=== PATIENT | female | born 1975 | race Caucasian/White ===

== ENCOUNTER → 2016-05-08 | Outpatient (CLI) | payer OTHER ==
[~2016-05-08] MED LIST: MIRALAX17 GM PO; NAPROXEN250 MG PO; NORCO 7.5-3251 EACH PO
[2016-05-08 11:28] LABS: RED BLOOD COUNT 4.57 M/UL (4.00-5.10)
== END ==
LOC: OPSV2 10:00
PROVIDERS: Obstetrics & Gynecology
DX: Z01.812 Encounter for preprocedural laboratory examination (principal); T19.2XXA Foreign body in vulva and vagina, initial encounter; Z88.8 Allergy status to other drugs, medicaments and biological substances
CPT/HCPCS: 36415; 81001; 85025

== ENCOUNTER 2016-05-17 07:13 | Day surgery (SDC) | payer OTHER ==
[~2016-05-17] VITALS: Ht 165.1 cm; Wt 95.3 kg
--- NOTE | 2016-05-18 01:08 | NUR ---
23:55 PT ON CENTRAL TELE / SAO2 MONITORING. PT STATES HAVING SOME CHEST PRESSURE AND STATES SHE THINKS IT IS GAS. CALLED TELE [employer]. THEY STATE PT IS IN [place] SINUS RHYTHM. RETURNED TO PT'S ROOM, TOLD PT OF THIS. PT SMILING, APPEARS RELIEVED AND STATES SHE'S GOING TO SLEEP. AT 01:00 05/18/16: PT IS SLEEPING SOUNDLY, LIGHTS OFF. NO FURTHER C/O BY PT.
[2016-05-18 03:24] LABS: HEMOGLOBIN 12.4 gm/dl (12.3-15.3)
[2016-05-18] MEDS ORDERED: NORCO 7.5-3251 EACH PO (12:53)
[2016-05-18] MEDS ORDERED: NAPROXEN250 MG PO (12:56)
[2016-05-18] MEDS ORDERED: MIRALAX17 GM PO (12:58)
== END 2016-05-18 13:19 | disposition home or self-care (01) ==
LOC: OR 07:13 → OB 07:13 → OR 11:00 → OB 14:16 → OR 05-18 13:19
PROVIDERS: Obstetrics & Gynecology
PROC: 0UBC0ZZ Excision of Cervix, Open Approach (ICD-10-PCS; principal; 2016-05-17 11:00)
DX: T83.728A Exposure of other implanted mesh into organ or tissue, initial encounter (principal); N72 Inflammatory disease of cervix uteri; N87.9 Dysplasia of cervix uteri, unspecified; F17.210 Nicotine dependence, cigarettes, uncomplicated; N73.6 Female pelvic peritoneal adhesions (postinfective); Z79.891 Long term (current) use of opiate analgesic; Z79.899 Other long term (current) drug therapy; Z88.8 Allergy status to other drugs, medicaments and biological substances; M79.7 Fibromyalgia; Z82.49 Family history of ischemic heart disease and other diseases of the circulatory system; Z80.8 Family history of malignant neoplasm of other organs or systems; Z83.3 Family history of diabetes mellitus; Z83.49 Family history of other endocrine, nutritional and metabolic diseases
CPT/HCPCS: 0; 57530; 85014; 85018; C1769; J0690; J1100; J1885; J2250; J2405; J2550; J2710; J2795; J3010; J7120

== ENCOUNTER → 2021-01-31 | Outpatient (CLI) | payer OTHER ==
[~2021-01-31] MED LIST changes: +IBUPROFEN600 MG PO; +MOTRIN SUS100 MG/5 M PO; +PREDNISONE20 MG PO; +VISTARIL25 MG PO
== END ==
LOC: KOH-I 13:47
DX: B97.21 SARS-associated coronavirus as the cause of diseases classified elsewhere (principal)
CPT/HCPCS: 71046